=== PATIENT | male | born 1940 | race Caucasian/White ===

== ENCOUNTER 2020-08-08 13:09 | Inpatient (IN) | payer MEDICARE ==
[~2020-08-08] VITALS: Ht 172.7 cm; Wt 76.6 kg
[2020-08-08] VITALS (196 sets, daily range): BP systolic 121–135; BP diastolic 77–78; PULSE 70–80; TEMP 98–98.6; O2SAT 88–99
[~2020-08-08 13:09] MED LIST: ASPIRIN 32325 MG/TAB PO; COREG 25MG25 MG/TAB PO; LASIX 20MG TABL20 MG PO; LIPITOR 40MG TA40 MG PO; PERCOCET 325 MG1 TA2 PO; ZOFRAN 4MG T4 MG/TAB PO
[2020-08-08 13:30] LABS: BASO % 0.4 % (0.0-2.0); EOS # 0.2 (0.0-0.7); EOS % 2.1 % (0-4.0); GRAN # 5.2 (1.4-6.5); GRAN % 67.3 % (42.2-75.2); HEMATOCRIT 46.8 % (42.0-52.0); HEMOGLOBIN 15.4 g/dl (13.5-18.0); LYMPH # 1.9 (1.2-3.4); LYMPH % 24.4 % (20.0-51.0); MEAN CELL VOLUME 91 fl (80.0-100.0); MEAN CORPUSCULAR HEMOGLOBIN 30 pg (27.0-31.0); MEAN CORPUSCULAR HGB CONC 33 g/dl (33.0-37.0); MEAN PLATELET VOLUME 10.8 fl (7.4-10.4); MONO # 0.4 (0.1-0.6); MONO % 5.5 % (1.7-9.3); PLATELET COUNT 206 K/mm3 (130-400); RED BLOOD COUNT 5.13 M/mm3 (4.20-5.60); REDCELL DISTRIBUTION WIDTH-CV 14.6 % (11.5-14.5)
[2020-08-08 13:47] LABS: INR 3.2 (0.8-3.0); PROTHROMBIN TIME 35.8 SECONDS (9.7-12.8)
[2020-08-08 13:50] LABS: PARTIAL THROMBOPLASTIN TIME 34.7 SECONDS (26.0-37.0)
[2020-08-08 14:12] LABS: ALANINE AMINOTRANSFERASE 15 U/L (4-49); ALBUMIN 3.7 gm/dL (3.5-5.0); ALKALINE PHOSPHATASE 83 U/L (50-136); ANION GAP 8 mmol/L (7-16); AST,SGOT 34 U/L (15-37); BILIRUBIN,TOTAL 1.1 mg/dL (0.0-1.0); BLOOD UREA NITROGEN 22 mg/dL (9-20); CALCIUM 8.6 mg/dL (8.4-10.2); CARBON DIOXIDE 29 mmol/L (22-30); CHLORIDE 103 mmol/L (98-107); CREATININE, serum 1.26 (0.66-1.25); GLUCOSE 187 mg/dL (74-106); POTASSIUM 3.8 mmol/L (3.4-5.0); SODIUM 140 mmol/L (137-145); TOTAL PROTEIN 6.7 gm/dL (6.4-8.2)
[2020-08-08 14:29] LABS: TROPONIN-I < 0.012 ng/mL (0.000-0.035)
[2020-08-08] MEDS ORDERED: DEMADEX 20MG20 M1 PO (17:50)
[2020-08-08] MEDS ORDERED: XARELTO10 MG PO (17:52)
--- NOTE | 2020-08-08 18:00 | NUR ---
RECEIVED REPORT FROM ANDIE MIRANDA IN ER. AWAITING ARRIVAL OF PT TO ICU 6.
--- NOTE | 2020-08-08 18:08 | NUR ---
PT ARRIVES VIA STRETCHER TO ICU 6. PT ABLE TO AMBULATE TO BED, STEADY GAIT NOTED. PLACED ON BEDSIDE CONTINOUS MONITOR. VSS. CALL LIGHT SYSTEM EDEDUCATION GIVEN, VERBALIZED UNDERSTANDING. PLACED WITHIN REACH. URINAL WITHIN REACH. DENIES ANY CP AT THIS TIME.
[2020-08-08] MEDS ORDERED: DESYREL 100MG100 MG PO (18:28)
--- NOTE | 2020-08-08 19:40 | NUR ---
Report received from Meng CHAVES.
[2020-08-08 21:08] LABS: CALCIUM 8.6 mg/dL (8.4-10.2); CREATININE, serum 1.1 (0.66-1.25); MAGNESIUM 2.2 mg/dL (1.6-2.3); POTASSIUM 3.6 mmol/L (3.4-5.0)
--- NOTE | 2020-08-08 21:30 | NUR ---
Explanation provided to pt regarding need for rapid COVID swabbing. Pt refused. Provider notified this nurse that it was ordered due to pt complaint of SOA. Pt reports that this SOA has been baseline for approximately 5 years. Pt was requesting the hadley of the COVID swab, although did not inquire about hadley with UA that was requested shortly following. 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 Pt verbalized understanding that staff members were in need of gowning up when entering the room. Call light and room telephone were placed at bedside and reviewed how to work both with pt.
--- NOTE | 2020-08-08 23:45 | NUR ---
This nurse called lab, admissions and pulp house supervisor in attempts to gain knowledge about pricing information for pt in order to obtain COVID swabbing. No information was obtained. Notified pt that we will continue to keep him in isolation until possibly someone that works tomorrow can assist us. Pt then notified this nurse that "I don't understand that its just now getting done, I have been here since one oclock and you just want to do it at nine PM. This nurse provided reassurance that if the pt does not wish to proceed that one has that right to refuse and that we will just continue doing what we are doing.
[2020-08-09] VITALS (694 sets, daily range): BP systolic 113–137; BP diastolic 72–83; PULSE 62–75; TEMP 98.1–988; O2SAT 84–100
[2020-08-09 00:40] LABS: COLLECTION METHOD CLEAN CATCH
[2020-08-09 00:46] LABS: PH 5 (5-8); SQUAMOUS EPITHELIAL None Seen /hpf; URINE APPEARANCE Clear; URINE BACTERIA None Seen /hpf; URINE BILIRUBIN Negative (NEGATIVE); URINE BLOOD Negative (NEGATIVE); URINE COLOR Yellow; URINE GLUCOSE Negative (NEGATIVE); URINE KETONE Negative (NEGATIVE); URINE LEUKOCYTE ESTERASE Negative (NEGATIVE); URINE NITRATE Negative (NEGATIVE); URINE PROTEIN(semi-quant) Negative (NEGATIVE); URINE RBC 0-2 /hpf
[2020-08-09 05:55] LABS: BASO % 0.2 % (0.0-2.0); EOS # 0.2 (0.0-0.7); EOS % 2.1 % (0-4.0); GRAN # 5.7 (1.4-6.5); GRAN % 66.2 % (42.2-75.2); HEMATOCRIT 42.5 % (42.0-52.0); HEMOGLOBIN 13.7 g/dl (13.5-18.0); LYMPH # 2.1 (1.2-3.4); LYMPH % 23.9 % (20.0-51.0); MEAN CELL VOLUME 94 fl (80.0-100.0); MEAN CORPUSCULAR HEMOGLOBIN 30 pg (27.0-31.0); MEAN CORPUSCULAR HGB CONC 32 g/dl (33.0-37.0); MEAN PLATELET VOLUME 9.4 fl (7.4-10.4); MONO # 0.6 (0.1-0.6); MONO % 7.3 % (1.7-9.3); PLATELET COUNT 182 K/mm3 (130-400); RED BLOOD COUNT 4.52 M/mm3 (4.20-5.60); REDCELL DISTRIBUTION WIDTH-CV 14.7 % (11.5-14.5)
[2020-08-09 06:08] LABS: ANION GAP 5 mmol/L (7-16); BLOOD UREA NITROGEN 20 mg/dL (9-20); CALCIUM 8.9 mg/dL (8.4-10.2); CARBON DIOXIDE 35 mmol/L (22-30); CHLORIDE 103 mmol/L (98-107); CREATININE, serum 1.24 (0.66-1.25); GLUCOSE 110 mg/dL (74-106); POTASSIUM 3.6 mmol/L (3.4-5.0); SODIUM 143 mmol/L (137-145)
[2020-08-09 06:29] LABS: TROPONIN-I < 0.012 ng/mL (0.000-0.035)
--- NOTE | 2020-08-09 07:15 | NUR ---
Report provided to Meng CHAVES.
--- NOTE | 2020-08-09 10:21 | NUR ---
Counseling Program Leader contacted patient's , Anusha Ramey" to complete initial intake as patient is a PUI for [facility] in contact isolation. Patient and Wander live in [place], [place] and patient sees Dr. Person for primary care. Patient obtains medications from [facility] with no difficulties. Patient does not use any DME and is normally independent with ADLS. Patient has Advance Directives in EMR which designate Wander as DPOA-HC. Wander advised that they plan is for patient to return home upon discharge. SW will continue to follow for discharge needs.
--- NOTE | 2020-08-09 10:54 | NUR ---
DR HONEYCUTT AT BEDSIDE. PT'S ICD SHOCKED PT. AT 1059, PT WAS SHOCKED AGAIN. NEW ORDERS RECEIVED BY DR HONEYCUTT. PHYSICIAN STATES IF ABOUT THREE HOURS FROM NOW, IF NO MORE SHOCKS, PT CAN HAVE A DIET ORDE. BUT IF HE IS SHOCKED AGAIN THEN HE WILL NEED ENVIRONMENTAL PROTECTION GEOLOGIST TODAY. IF PT DOES OKAY, PHYSICIAN STATES HE WILL CATH HIM SUNDAY MOST LIKELY THEN. PHYSICIAN REQUESTS A STAT US ECHO WELL.
--- NOTE | 2020-08-09 11:34 | NUR ---
DR MASON UPDATED ON CARDIAC EVENT AND COVID SWAB RESULTS. AWAITING ORDERS.
--- NOTE | 2020-08-09 11:48 | NUR ---
SPOKE TO DR MASON AND PHYSICIAN STATES CAN DC ISOLATION PRECAUTIONS AT THIS TIME
--- NOTE | 2020-08-09 11:57 | NUR ---
Chaplain lisad for patient while standing outside of door
--- NOTE | 2020-08-09 16:50 | NUR ---
ATTEMPTED TO NOTIFY DR PARRISH THAT ORDER FOR FULL CODE IS INACCURATE PT STATES HE IS A DNR.
--- NOTE | 2020-08-09 18:06 | NUR ---
NOTIFIED DR MASON OF CODE STATUS,NEW ORDERS RECEIVED.
--- NOTE | 2020-08-09 20:00 | NUR ---
Assessment complete; patient alert and oriented and pleasant with staff. Denies any pain at this time. Reports some shortness of breath but states it is per his baseline. Call light left within reach; will continue to monitor.
[2020-08-10] VITALS (701 sets, daily range): BP systolic 116–150; BP diastolic 83–96; PULSE 69–74; TEMP 97.8–98.4; O2SAT 86–100
--- NOTE | 2020-08-10 07:15 | NUR ---
RECEIVED REPORT FROM ANDIE ENG. PT SLEEPING AT THIS TIME. NOTED PT TO HAVE INCREASE RR IN THE MID 20s WITH ABDOMINAL BREATHING WHILE SLEEPING.POX 98% ON 4L VIA NC. WILL CONTINUE TO MONITOR CLOSELY. ALL OTHER VSS. CALL LIGHT WITHIN REACH.
[2020-08-10 08:20] LABS: BASO # 0.1 (0.0-0.2); BASO % 0.3 % (0.0-2.0); EOS % 0.1 % (0-4.0); HEMATOCRIT 50.6 % (42.0-52.0); LYMPH # 1.5 (1.2-3.4); LYMPH % 9.8 % (20.0-51.0); MEAN CELL VOLUME 94 fl (80.0-100.0); MEAN CORPUSCULAR HEMOGLOBIN 30 pg (27.0-31.0); MEAN CORPUSCULAR HGB CONC 32 g/dl (33.0-37.0); MEAN PLATELET VOLUME 10.7 fl (7.4-10.4); MONO # 0.8 (0.1-0.6); MONO % 5.3 % (1.7-9.3); PLATELET COUNT 236 K/mm3 (130-400); REDCELL DISTRIBUTION WIDTH-CV 14.6 % (11.5-14.5)
[2020-08-10 08:29] LABS: HEMOGLOBIN 16.2 g/dl (13.5-18.0)
[2020-08-10 08:31] LABS: CALCIUM 9.6 mg/dL (8.4-10.2); CREATININE, serum 1.3 (0.66-1.25); MAGNESIUM 2.4 mg/dL (1.6-2.3)
--- NOTE | 2020-08-10 09:50 | NUR ---
DR AMADOR AT BEDSIDE FOR ASSESSMENT AND DISCUSSED CATH POC FOR TOMORROW WITH DR HONEYCUTT. NOTIFIED PHYSICIAN OF WBC THIS MORNING. NEW ORDERS RECEIVED. PHYSICIAN TURNS O2 DOWN TO 3L VIA NC.
--- NOTE | 2020-08-10 11:30 | NUR ---
POX 98%. TURNED O2 DOWN TO 2L VIA NC.
--- NOTE | 2020-08-10 11:56 | NUR ---
SPOKE TO DR HONEYCUTT ABOUT AMIO GTT, PHYSICIAN STATES IF PAST 24 HOURS THEN STOP GTT AND CHANGE TO PO BID. SEE MAR.
--- NOTE | 2020-08-10 21:39 | NUR ---
Patient alert and oriented sitting on the side of the bed. Denies any pain or chest pain at this time. Reports shortness of air but states he has this at baseline. Patient does appear to have mild dypnea at rest, however he had removed his o2 cannula while urinating. Assisted to replace the cannula. Denies any other needs or concerns at this time. Will continue to monitor; call light left within reach.
[2020-08-11] VITALS (168 sets, daily range): BP systolic 103–136; BP diastolic 56–91; PULSE 66–75; TEMP 98–98.3; O2SAT 92–99
--- NOTE | 2020-08-11 10:55 | NUR ---
Report given to Henny CHAVES and patient taken to label paster via bed for procedure. Consent signed and on chart.
--- NOTE | 2020-08-11 11:06 | NUR ---
SEE MERGE FOR ALL MEDICATION ADMIN TIMES, INTRA AND POST SEDATION ASSESSMENT
--- NOTE | 2020-08-11 12:40 | NUR ---
RECIEVED REPORT FROM AMANDA CHAVES. RECIEVED PATIENT IN THE ROOM. ATTATCHED TO MONITORING. LEFT RADIAL SITE CDI WITH NO HEMATOMA. RIGHT IJ SHEATH CDI.
[2020-08-11 12:52] LABS: CALCIUM 8.7 mg/dL (8.4-10.2); CREATININE, serum 0.95 (0.66-1.25); MAGNESIUM 2.4 mg/dL (1.6-2.3); POTASSIUM 4.1 mmol/L (3.4-5.0)
--- NOTE | 2020-08-11 13:05 | NUR ---
REPORT OFF TO ISAC CHAVES.
[2020-08-11 13:27] LABS: BASO % 0.2 % (0.0-2.0); EOS % 0.3 % (0-4.0); GRAN # 11.1 (1.4-6.5); GRAN % 78.6 % (42.2-75.2); HEMATOCRIT 46.3 % (42.0-52.0); HEMOGLOBIN 15.2 g/dl (13.5-18.0); LYMPH # 1.9 (1.2-3.4); LYMPH % 13.7 % (20.0-51.0); MEAN CELL VOLUME 93 fl (80.0-100.0); MEAN CORPUSCULAR HEMOGLOBIN 31 pg (27.0-31.0); MEAN CORPUSCULAR HGB CONC 33 g/dl (33.0-37.0); MONO # 0.9 (0.1-0.6); MONO % 6.6 % (1.7-9.3); PLATELET COUNT 198 K/mm3 (130-400); RED BLOOD COUNT 4.97 M/mm3 (4.20-5.60); REDCELL DISTRIBUTION WIDTH-CV 14.6 % (11.5-14.5)
--- NOTE | 2020-08-11 17:08 | NUR ---
Awakens easily, denies needs at this time. Small amount of bruising continues to left radial cath site.
--- NOTE | 2020-08-11 19:30 | NUR ---
To room 327 via wheelchair from ICU. 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 Assessment complete. VS stable. A&Ox3. Denies pain/nausea. Short of breath with activity-baseline. O2@2L/NC. Radial band with scant amount of old blood noted. Plan of care discussed for this shift to include removal of air from band every 30 minutes. Verbalizes understanding but expresses concern that he is afraid if we release to much to often he will start to bleed. States "I bleed like a stuck pig from a paper cut." Ensured we would take it slow and if bleeding starts to occur air will be re-injected. Verbalizes understanding and okay with plan. Denies any other questions/concerns. Call light in reach. Will monitor.
[2020-08-12 00:01] VITALS: BP 103/62; PULSE 69; TEMP 98.1
--- NOTE | 2020-08-12 00:10 | NUR ---
Sitting up in chair-no c/o pain/nausea. Short of breath with activity-baseline. No bleeding noted to left radial cath site. Bandaid remainds CDI. Denies questions/concerns. Call light in reach. Will monitor.
[2020-08-12 04:57] VITALS: BP 116/69; PULSE 70; TEMP 98.4
--- NOTE | 2020-08-12 06:08 | NUR ---
Did not rest much this shift. States he was afraid to fall asleep and bump the heart cath site and making it bleed. DId have on the splint but still couldnt sleep due to fear. Bandaid remains CDI. Denied nausea/chest pain/pain. Short of air but states its his baseline. Denies current needs. Call light in reach. Will monitor.
[2020-08-12 07:27] LABS: BASO % 0.3 % (0.0-2.0); EOS # 0.2 (0.0-0.7); EOS % 1.6 % (0-4.0); GRAN # 8.8 (1.4-6.5); GRAN % 74.4 % (42.2-75.2); HEMATOCRIT 45.6 % (42.0-52.0); HEMOGLOBIN 14.6 g/dl (13.5-18.0); LYMPH # 1.9 (1.2-3.4); LYMPH % 15.7 % (20.0-51.0); MEAN CELL VOLUME 93 fl (80.0-100.0); MEAN CORPUSCULAR HEMOGLOBIN 30 pg (27.0-31.0); MEAN CORPUSCULAR HGB CONC 32 g/dl (33.0-37.0); MEAN PLATELET VOLUME 10.7 fl (7.4-10.4); MONO # 0.9 (0.1-0.6); MONO % 7.4 % (1.7-9.3); PLATELET COUNT 215 K/mm3 (130-400); RED BLOOD COUNT 4.89 M/mm3 (4.20-5.60); REDCELL DISTRIBUTION WIDTH-CV 14.7 % (11.5-14.5)
[2020-08-12 07:29] VITALS: BP 125/68; PULSE 70; TEMP 98.3
[2020-08-12 07:51] LABS: CALCIUM 8.8 mg/dL (8.4-10.2); CREATININE, serum 1.21 (0.66-1.25); MAGNESIUM 2.4 mg/dL (1.6-2.3)
[2020-08-12] MEDS ORDERED: CORDARONE200 MG/TAB PO (09:09)
[2020-08-12] MEDS ORDERED: ZESTRIL 5MG5 MG PO (09:10)
[2020-08-12] MEDS ORDERED: ASPIRIN 81M81 MG/TA2 PO (09:10)
[2020-08-12] MEDS ORDERED: MELATONIN3 M1 PO (09:11)
[2020-08-12] MEDS ORDERED: LASIX 40MG TABL40 MG PO (09:12)
[2020-08-12] MEDS ORDERED: NITROSTAT0.4 MG/TAB SL (09:13)
--- NOTE | 2020-08-12 09:31 | NUR ---
PT UP TO RECLINER FOR BREAKFAST THEN RETURNED TO BED AFTER EATING INDEPENDENTLY. PLAN ON DISCHARGE LATER TODAY.
--- NOTE | 2020-08-12 10:24 | NUR ---
Initial visit; Patient thanked [employer] Maintainer for looking in on him and stated he was being discharged home this morning. [employer] Maintainer wished him well.
--- NOTE | 2020-08-12 10:58 | NUR ---
The patient is to discharge back home with his today, 08/12. An exercise oximetry was ordered. The patient qualified for two liters of oxygen. DANYA met with the patient to review d/c plan and to discuss the oxygen. The patient states that he still plans on returning home with his . His is on oxygen and he requested that SW contact her to see where she gets her oxygen from. DANYA presented and read the IM form outloud to the patient. The patient verbalized understanding and gave SW approval to sign the form on his behalf. DANYA provided him with a copy. DANYA then contacted the patient's , Wander. She confirmed the d/c plan to return home. The patient states that she receives her oxygen from [facility] and she would like to go ahead and get his oxygen from there too. DANYA contacted and faxed the patient's oxygen order to Steve at [facility]. Awaiting delivery of oxygen.
--- NOTE | 2020-08-12 11:25 | NUR ---
DISCHARGE ORDERED WAITING FOR MEDICAL SUPPLY TO DELIVER HOME O2
[2020-08-12 11:32] VITALS: BP 119/64; PULSE 70; TEMP 98.5
--- NOTE | 2020-08-12 13:53 | NUR ---
[facility] delivered the patient's oxygen to his room. SW informed the patient's RN. No additional needs at this time.
--- NOTE | 2020-08-12 14:55 | NUR ---
PT DISCHARGED HOME AFTER REMOVING IJ PT TOLERATED WELL.
== END 2020-08-12 14:57 | disposition home or self-care (01) | DRG 287 ==
LOC: COL.ER 13:09 → ICU 16:15 → JCC 08-11 19:13
PROVIDERS: Family Medicine; Internal Medicine; Internal Medicine Critical Care Medicine; Physician Assistant; ADMIT Student in an Organized Health Care Education/Training Program
PROC: 4A023N8 Measurement of Cardiac Sampling and Pressure, Bilateral, Percutaneous Approach (ICD-10-PCS; principal; 2020-08-11)
PROC: B2111ZZ Fluoroscopy of Multiple Coronary Arteries using Low Osmolar Contrast (ICD-10-PCS; 2020-08-11)
PROC: B2181ZZ Fluoroscopy of Left Internal Mammary Bypass Graft using Low Osmolar Contrast (ICD-10-PCS; 2020-08-11)
PROC: B51V1ZZ Fluoroscopy of Other Veins using Low Osmolar Contrast (ICD-10-PCS; 2020-08-11)
DX: I47.2 Ventricular tachycardia (principal); I13.0 Hypertensive heart and chronic kidney disease with heart failure and stage 1 through stage 4 chronic kidney disease, or unspecified chronic kidney disease; N17.9 Acute kidney failure, unspecified; E78.5 Hyperlipidemia, unspecified; G47.00 Insomnia, unspecified; I25.10 Atherosclerotic heart disease of native coronary artery without angina pectoris; R73.03 Prediabetes; R73.9 Hyperglycemia, unspecified; J44.9 Chronic obstructive pulmonary disease, unspecified; I45.81 Long QT syndrome; I50.9 Heart failure, unspecified; Z20.828 Contact with and (suspected) exposure to other viral communicable diseases; I27.20 Pulmonary hypertension, unspecified; Z95.810 Presence of automatic (implantable) cardiac defibrillator; I25.2 Old myocardial infarction; Z95.1 Presence of aortocoronary bypass graft; Z87.891 Personal history of nicotine dependence
CPT/HCPCS: OP; 99233-AI; 99239; C1887; C1894; G0378; J0282; J1644; J1940; J2250; J3010; J7060; Q9967

== ENCOUNTER → 2023-09-19 | Outpatient (CLI) | payer MEDICARE ==
[~2023-09-19] MED LIST changes: +ASPIRIN 81M81 MG/TA2 PO; +CORDARONE200 MG/TAB PO; +DEMADEX 20MG20 M1 PO; +DESYREL 100MG100 MG PO; +LASIX 40MG TABL40 MG PO; +MELATONIN3 M1 PO; +NITROSTAT0.4 MG/TAB SL; +XARELTO10 MG PO; +ZESTRIL 5MG5 MG PO
== END ==
LOC: COL.RAD 09:21
DX: S32.020A Wedge compression fracture of second lumbar vertebra, initial encounter for closed fracture (principal); Z95.0 Presence of cardiac pacemaker; Z98.890 Other specified postprocedural states
CPT/HCPCS: A9503-JZ